=== PATIENT | male | born 1960 | race African-American/Black ===

== ENCOUNTER 2024-10-28 14:21 | Emergency (ER) | payer MEDICARE ==
[~2024-10-28] VITALS: Ht 182.9 cm; Wt 120.0 kg
[2024-10-28 14:39] VITALS: BP 185/91; PULSE 90; RESP 18; TEMP 37.2; O2SAT 100
== END 2024-10-28 15:23 | disposition left against medical advice (07) ==
LOC: ER 14:21
DX: M54.50 Low back pain, unspecified (principal); I10 Essential (primary) hypertension; Z53.21 Procedure and treatment not carried out due to patient leaving prior to being seen by health care provider